=== PATIENT | male | born 1990 | race African-American/Black ===

== ENCOUNTER 2016-09-19 14:54 | Day surgery (SDC) | payer OTHER ==
[~2016-09-19] VITALS: Ht 157.5 cm; Wt 51.5 kg
[2016-09-19] VITALS (8 sets, daily range): BP systolic 124–142; BP diastolic 74–107; PULSE 107–138; RESP 16–18; TEMP 97.7–99.5; O2SAT 99–100
[~2016-09-19 14:54] MED LIST: BACI500O9 TOP; DICLOFENAC SODIUM 37.5 MG/ML VIAL IV PUSH ONE; PROPOFOL 200 MG/20 ML AMP IV ONE; SULF-154 PO; Z.0.NO CURRENT MEDS
[2016-09-19] MEDS ORDERED: SODIUM CHLOR 0.9% 1000 ML INJ 1,000 ML IV SCH (15:53)
[2016-09-19] MEDS ORDERED: SODIUM CHLORIDE 0.9% FLUSH 5 ML FLUSH IVF PRN (16:00)
[2016-09-19] MEDS ORDERED: FAMOTIDINE 20 MG/2 ML VIAL IV PUSH ONE (16:00)
[2016-09-19] MEDS ORDERED: ONDANSETRON HCL 4 MG/2 ML VIAL IVP ONE (16:00)
[2016-09-19 16:26] LABS: AUTOMATED NEUTROPHIL # 7.3 TH/MM3 (1.8-7.7); BASOPHIL # 0.2 TH/MM3 (0-0.2); BASOPHIL % 2.4 % (0.0-2.0); EOSINOPHIL % 0.3 % (0.0-4.0); HEMATOCRIT 48.2 % (39.0-51.0); HEMO FLAGS DIFF FINAL; LYMPH % 14.1 % (9.0-44.0); LYMPHOCYTE # 1.3 TH/MM3 (1.0-4.8); MEAN CELL VOLUME 86.6 FL (80.0-100.0); MEAN CORPUSCULAR HEMOGLOBIN 27.3 PG (27.0-34.0); MEAN CORPUSCULAR HGB CONC 31.5 % (32.0-36.0); MONO % 7.4 % (0.0-8.0); NEUT % 75.8 % (16.0-70.0); PLATELET COUNT 248 TH/MM3 (150-450); RED BLOOD COUNT 5.56 MIL/MM3 (4.50-5.90); RED CELL DISTRIBUTION WIDTH 12.3 % (11.6-17.2); WHITE BLOOD COUNT 9.5 TH/MM3 (4.0-11.0)
--- NOTE | 2016-09-19 16:32 | PD ---
HPI Chief Complaint: GI Complaint Time Seen by Provider: 15:47 Travel History International Travel<30 days: No Contact w/Intl Traveler<30days: No Traveled to known affect area: No History of Present Illness HPI Patient is a 26-year-old male, with history of cerebral palsy, who comes in complaining of nausea and vomiting for 2 days. Per his family, he has not been able to keep anything down for the past 2 days. The last time he vomited was last night. He has been drinking fluids today and not vomiting. He has not tried to eat anything today. He says he has had some pain to his abdomen in the epigastric area. He complains of feeling very weak. He says that his mom has appeared dark, but he has not seen any jazzmine blood. He also reports no bowel movement in 2 days. He has not had any fever or chills. He has not had any cough or cold symptoms. PFSH Past Medical History Neurologic: Yes (CEREBRAL PALSY) Tetanus Vaccination: > 5 Years Influenza Vaccination: No Past Surgical History Neurologic Surgery: Yes (SPINAL FUSION) Social History Alcohol Use: No Tobacco Use: No Substance Use: No Allergies-Medications (Allergen,Severity, Reaction): Coded Allergies: No Known Allergies (Verified , 09/19/16) Reported Meds & Prescriptions Reported Meds & Active Scripts Active No Active Prescriptions or Reported Medications Review of Systems Except as stated in HPI: all other systems reviewed are Neg General / Constitutional: No: Fever, Chills HENT: No: Headaches, Lightheadedness Cardiovascular: No: Chest Pain or Discomfort Respiratory: No: Shortness of Breath Gastrointestinal: Positive: Nausea, Vomiting, Abdominal Pain, Constipation Genitourinary: No: Dysuria Skin: No Rash, No Change in Pigmentation Neurologic: Positive: Weakness Physical Exam Narrative GENERAL: Awake and alert, in no acute distress. SKIN: Warm and dry. HEAD: Atraumatic. Normocephalic. EYES: Pupils equal and round. No scleral icterus. Extraocular movements intact. ENT: Dry mucous membranes. NECK: Trachea midline. No JVD. CARDIOVASCULAR: Tachycardia. RESPIRATORY: No accessory muscle use. Clear to auscultation. Breath sounds equal bilaterally. GASTROINTESTINAL: Abdomen soft, non-tender, nondistended. Patient winces as if in pain, but denies tenderness on palpation. MUSCULOSKELETAL: Extremities contracted. No edema. NEUROLOGICAL: Awake and alert. No obvious cranial nerve deficits. Normal speech. PSYCHIATRIC: Appropriate mood and affect; insight and judgment normal. Data Data Last Documented VS Vital Signs Date Time Temp Pulse Resp B/P Pulse Ox O2 Delivery O2 Flow Rate FiO2 09/19/16 17:54 124 17 124/74 99 Room Air 09/19/16 17:08 99.5 Orders Basic Metabolic Panel (Bmp) (09/19/16 15:53) Complete Blood Count With Diff (09/19/16 15:53) Lipase (09/19/16 15:53) Lactic Acid (09/19/16 15:53) Prothrombin Time / Inr (Pt) (09/19/16 15:53) Act Partial Throm Time (Ptt) (09/19/16 15:53) Urinalysis - C+S If Indicated (09/19/16 15:53) Ua Includes Microscopic (09/19/16 15:53) Ct Abd/Pel W Iv Contrast(Rout) (09/19/16 15:53) Iv Access Insert/Monitor (09/19/16 15:53) Ecg Monitoring (09/19/16 15:53) Oximetry (09/19/16 15:53) Ondansetron Inj (Zofran Inj) (09/19/16 16:00) Sodium Chlor 0.9% 1000 Ml Inj (Ns 1000 M (09/19/16 15:53) Sodium Chloride 0.9% Flush (Ns Flush) (09/19/16 16:00) Famotidine Inj (Pepcid Inj) (09/19/16 16:00) Hepatic Functional Panel (09/19/16 15:53) Sodium Chlor 0.9% 1000 Ml Inj (Ns 1000 M (09/19/16 17:15) Acetaminophen (Tylenol) (09/19/16 17:15) Ondansetron Inj (Zofran Inj) (09/19/16 18:00) Ketorolac Inj (Toradol Inj) (09/19/16 18:00) Iohexol 350 Inj (Omnipaque 350 Inj) (09/19/16 18:18) Admit Order (Ed Use Only) (09/19/16 ) Labs Laboratory Tests Test 09/19/16 09/19/16 16:15 16:45 White Blood Count 9.5 TH/MM3 Red Blood Count 5.56 MIL/MM3 Hemoglobin 15.2 GM/DL Hematocrit 48.2 % Mean Corpuscular Volume 86.6 FL Mean Corpuscular Hemoglobin 27.3 PG Mean Corpuscular Hemoglobin 31.5 % Concent Red Cell Distribution Width 12.3 % Platelet Count 248 TH/MM3 Mean Platelet Volume 11.3 FL Neutrophils (%) (Auto) 75.8 % Lymphocytes (%) (Auto) 14.1 % Monocytes (%) (Auto) 7.4 % Eosinophils (%) (Auto) 0.3 % Basophils (%) (Auto) 2.4 % Neutrophils # (Auto) 7.3 TH/MM3 Lymphocytes # (Auto) 1.3 TH/MM3 Monocytes # (Auto) 0.7 TH/MM3 Eosinophils # (Auto) 0.0 TH/MM3 Basophils # (Auto) 0.2 TH/MM3 CBC Comment DIFF FINAL Differential Comment Prothrombin Time 12.1 SEC Prothromb Time International 1.1 RATIO Ratio Activated Partial 30.9 SEC Thromboplast Time Sodium Level 134 MEQ/L Potassium Level 4.6 MEQ/L Chloride Level 100 MEQ/L Carbon Dioxide Level 18.2 MEQ/L Anion Gap 16 MEQ/L Blood Urea Nitrogen 15 MG/DL Creatinine 1.20 MG/DL Estimat Glomerular Filtration 89 ML/MIN Rate Random Glucose 89 MG/DL Lactic Acid Level 1.7 mmol/L Calcium Level 9.3 MG/DL Total Bilirubin 0.9 MG/DL Direct Bilirubin 0.2 MG/DL Indirect Bilirubin 0.7 MG/DL Aspartate Amino Transf 6 U/L (AST/SGOT) Alanine Aminotransferase 14 U/L (ALT/SGPT) Alkaline Phosphatase 90 U/L Total Protein 9.8 GM/DL Albumin 4.2 GM/DL Lipase 52 U/L Urine Collection Type CLEAN CATCH Urine Color YELLOW Urine Turbidity CLEAR Urine pH 6.0 Urine Specific [place] 1.024 Urine Protein 100 mg/dL Urine Glucose (UA) NEG mg/dL Urine Ketones 80 OR GREATER mg/dL Urine Occult Blood MOD Urine Nitrite NEG Urine Bilirubin NEG Urine Leukocyte Esterase NEG Urine RBC 0-3 /hpf Urine WBC 0-2 /hpf Urine Bacteria RARE /hpf Microscopic Urinalysis Comment CULT NOT INDICATED Urine Collection Time 1655 MDM Medical Decision Making Medical Screen Exam Complete: Yes Emergency Medical Condition: Yes Medical Record Reviewed: Yes Differential Diagnosis Gastroenteritis versus obstruction versus UTI versus colitis Narrative Course Patient is a 26-year-old male who comes in complaining of vomiting. Exam shows patient is tachycardic. IV established, labs sent. Labs show creatinine of 1.2. Patient given 2 L of fluids. Given Toradol. Given Zofran 2. CT of the abdomen and pelvis performed shows a 10 x 8 mm obstructing stone on the left. I spoke with Dr. Parra of urology. He would like patient transferred to the main hospital to place a ureteral stent. Patient admitted to same day surgery for the procedure. Patient reports being comfortable and having no complaints at this time. Diagnosis Primary Impression: Ureteral stone with hydronephrosis Admitting Information Admitting Physician Requests: Admit Scripts No Active Prescriptions or Reported Meds Carlotta Jackson MD Sep 19, 2016 16:32
[2016-09-19 16:35] LABS: POTASSIUM 4.6 MEQ/L (3.5-5.1)
[2016-09-19 16:39] LABS: BICARBONATE 18.2 MEQ/L (21.0-32.0)
[2016-09-19 16:41] LABS: APTT (PATIENT) 30.9 SEC (24.3-30.1); INTERNATIONAL NORMALIZED RATIO 1.1 RATIO; PROTHROMBIN TIME - PATIENT 12.1 SEC (9.8-11.6)
[2016-09-19 16:44] LABS: INDIRECT BILIRUBIN 0.7 MG/DL (0.0-0.8); TOTAL BILIRUBIN ADULT 0.9 MG/DL (0.2-1.0)
[2016-09-19] MEDS ORDERED: ACETAMINOPHEN 325 MG TAB PO ONE (17:15)
[2016-09-19] MEDS ORDERED: SODIUM CHLOR 0.9% 1000 ML INJ 1,000 ML IV ONE (17:15)
[2016-09-19 17:28] LABS: GLUCOSE,URINE NEG (NEG); NITRITE,URINE NEG (NEG)
[2016-09-19 17:30] LABS: BLOOD, URINE MOD (NEG); KETONE, URINE 80 OR GREATER mg/dL (NEG)
[2016-09-19 17:55] LABS: BACTERIA, URINE RARE /hpf; METHOD OF COLLECTION CLEAN CATCH; RBC, URINE 0-3 /hpf (0-3); URINE COLOR YELLOW (YELLW/STRAW); WBC, URINE 0-2 /hpf (0-5)
[2016-09-19 17:56] LABS: COMMENT (UR) CULT NOT INDICATED; CULTURE IF INDICATED CULT NOT INDICATED
[2016-09-19] MEDS ORDERED: ONDANSETRON HCL 4 MG/2 ML VIAL IV PUSH ONE (18:00)
[2016-09-19] MEDS ORDERED: KETOROLAC TROMETHAMINE 30 MG/ML (IVP) VIAL IV PUSH ONE (18:00)
--- NOTE | 2016-09-19 18:05 | RADHPO ---
EXAM DATE/TIME: 09/19/2016 17:16 [facility] COMPARISON: No previous studies available for comparison. INDICATIONS : Nausea and vomiting for two days. IV CONTRAST: 87 cc Omnipaque 350 (iohexol) IV ORAL CONTRAST: No oral contrast ingested. RADIATION DOSE: 11.45 CTDIvol (mGy) MEDICAL HISTORY : Cerebral palsy. SURGICAL HISTORY : Fusion, lumbar. ENCOUNTER: Initial ACUITY: 2 days PAIN SCALE: 5/10 LOCATION: Abdomen. TECHNIQUE: Volumetric scanning of the abdomen and pelvis was performed. Using automated exposure control and ad justment of the mA and/or kV according to patient size, radiation dose was kept as low as reasonably achievable to obtain optimal diagnostic quality images. FINDINGS: LOWER LUNGS: The visualized lower lungs are clear. LIVER: Homogeneous density without lesion. There is no dilation of the biliary tree. No calcified gallston es. SPLEEN: Normal size without lesion. PANCREAS: Within normal limits. KIDNEYS: Normal in size and shape. There is a 10 by 8mm calculus in the proximal left ureter with moderate lef t hydronephrosis. The left kidney is mildly prominent and there is a delayed nephrogram. ADRENAL GLANDS: Within normal limits. VASCULAR: There is no aortic aneurysm. BOWEL/MESENTERY: The distal esophagus is abnormal with dilatation and fluid. The stomach, small bowel, and colon demon strate no acute abnormality. There is no free intraperitoneal air or fluid. ABDOMINAL WALL: Within normal limits. RETROPERITONEUM: There is no lymphadenopathy. BLADDER: No wall thickening or mass. REPRODUCTIVE: Within normal limits. INGUINAL: There is no lymphadenopathy or hernia. MUSCULOSKELETAL: Extensive postsurgical changes are noted throughout the spine with multilevel fusion and severe scoli osis. There is extensive streak artifact limiting visualization. CONCLUSION: 1. 10 by 8mm proximal left ureteral calculus with moderate hydronephrosis. There is apparent delayed nephrogram. 2. Abnormal distal esophagus which is dilated and contains fluid. 3. Severe scoliosis and postsurgical changes. Mark Ceja MD on September 19, 2016 at 17:59 Board Certified Radiologist. This report was verified electronically.
[2016-09-19] MEDS ORDERED: IOHEXOL 350 MG/ML 10 ML VIAL (for RAD DIAG) IV ONE (18:18)
[2016-09-19] MEDS ORDERED: LEVOFLOXACIN 500 MG PREMIX INJ 100 ML IV ONE (19:15)
[2016-09-19] MEDS ORDERED: ceFAZolin INJ 1,000 MG VIAL ONE (20:05)
[2016-09-19] MEDS ORDERED: ACETAMINOPHEN 1000 MG/100 ML VIAL IV ONE (21:11)
[2016-09-19] MEDS ORDERED: SUGAMMADEX SODIUM 200 MG/2 ML VIAL IV PUSH ONE ×2 (21:20)
--- NOTE | 2016-09-19 21:38 | PD.CONS ---
HPI Service Urology Consult Requested By Reason for Consult Left nephrolithiasis Primary Care Physician Gilberto Bustillo MD Diagnosis: History of Present Illness 26yo male with CP presents with evidence of a large left proximal ureteral stone. Patient has been vomiting throughout the day with vague abdominal pain. CT scan identified a large left proximal ureteral stone. No fevers. Normal WBC. No history of kidney stones. Review of Systems ROS Limitations: Clinical Condition Constitutional: DENIES: Fever Endocrine: DENIES: Polyuria Eyes: DENIES: Blurred vision Ears, nose, mouth, throat: DENIES: Hearing loss Respiratory: DENIES: Cough Cardiovascular: DENIES: Chest pain Gastrointestinal: COMPLAINS OF: Abdominal pain, Nausea, Vomiting Genitourinary: COMPLAINS OF: Hematuria Musculoskeletal: DENIES: Back pain Integumentary: DENIES: Rash Hematologic/lymphatic: DENIES: Bruising Neurologic: DENIES: Headache Psychiatric: DENIES: Anxiety Except as stated in HPI: all other systems reviewed are Neg Past Family Social History Past Medical History Cerebral Palsy Nephrolithiasis Past Surgical History Spinal fusion Reported Medications Reported Meds & Active Scripts Active No Active Prescriptions or Reported Medications Allergies: Coded Allergies: No Known Allergies (Verified , 09/19/16) Active Ordered Medications Current Medications Medications (Trade) Dose Ordered Sig/Justin Route Start Time Stop Time Status Last Admin (NS Flush) 2 ml UNSCH PRN IVF 09/19/16 16:00 Family History Reviewed and noncontributory to present illness Social History No smoking history No ETOH Physical Exam Vital Signs Vital Signs Date Time Temp Pulse Resp B/P Pulse Ox O2 Delivery O2 Flow Rate FiO2 09/19/16 19:16 99.0 124 18 134/81 99 Room Air 09/19/16 17:54 124 17 124/74 99 Room Air 09/19/16 17:08 99.5 138 09/19/16 16:22 100 Room Air 09/19/16 14:56 99.2 120 18 142/107 100 Physical Exam GENERAL: This is a well-nourished male. in no apparent distress. SKIN: No rashes, ecchymoses or lesions. Cool and dry. HEAD: Atraumatic. Normocephalic. EYES: Extraocular motions intact. No scleral icterus. No injection or drainage. ENT: Nose without bleeding, purulent drainage. Airway patent. NECK: Trachea midline. CARDIOVASCULAR: Normal pulses. RESPIRATORY: Respirations nonlabored, Equal chest rise GASTROINTESTINAL: Abdomen soft, non-tender, nondistended. MUSCULOSKELETAL: Extremities without clubbing, cyanosis. Contracted upper and lower extremities, minimal range of motion NEUROLOGICAL: Awake and alert. Normal speech. Laboratory Laboratory Tests Test 09/19/16 09/19/16 16:15 16:45 White Blood Count 9.5 Red Blood Count 5.56 Hemoglobin 15.2 Hematocrit 48.2 Mean Corpuscular Volume 86.6 Mean Corpuscular Hemoglobin 27.3 Mean Corpuscular Hemoglobin 31.5 Concent Red Cell Distribution Width 12.3 Platelet Count 248 Mean Platelet Volume 11.3 Neutrophils (%) (Auto) 75.8 Lymphocytes (%) (Auto) 14.1 Monocytes (%) (Auto) 7.4 Eosinophils (%) (Auto) 0.3 Basophils (%) (Auto) 2.4 Neutrophils # (Auto) 7.3 Lymphocytes # (Auto) 1.3 Monocytes # (Auto) 0.7 Eosinophils # (Auto) 0.0 Basophils # (Auto) 0.2 CBC Comment DIFF FINAL Differential Comment Prothrombin Time 12.1 Prothromb Time International 1.1 Ratio Activated Partial 30.9 Thromboplast Time Sodium Level 134 Potassium Level 4.6 Chloride Level 100 Carbon Dioxide Level 18.2 Anion Gap 16 Blood Urea Nitrogen 15 Creatinine 1.20 Estimat Glomerular Filtration 89 Rate Random Glucose 89 Lactic Acid Level 1.7 Calcium Level 9.3 Total Bilirubin 0.9 Direct Bilirubin 0.2 Indirect Bilirubin 0.7 Aspartate Amino Transf 6 (AST/SGOT) Alanine Aminotransferase 14 (ALT/SGPT) Alkaline Phosphatase 90 Total Protein 9.8 Albumin 4.2 Lipase 52 Urine Collection Type CLEAN CATCH Urine Color YELLOW Urine Turbidity CLEAR Urine pH 6.0 Urine Specific Levels 1.024 Urine Protein 100 Urine Glucose (UA) NEG Urine Ketones 80 OR GREATER Urine Occult Blood MOD Urine Nitrite NEG Urine Bilirubin NEG Urine Leukocyte Esterase NEG Urine RBC 0-3 Urine WBC 0-2 Urine Bacteria RARE Microscopic Urinalysis Comment CULT NOT INDICATED Urine Collection Time 1655 Result Diagram: 09/19/16 1615 09/19/16 1615 Imaging Last 72 hours Impressions Abdomen/Pelvis CT 09/19/16 1553 Signed Impressions: Service Date/Time: Monday, September 19, 2016 17:16 - CONCLUSION: 1. 10 by 8mm proximal left ureteral calculus with moderate hydronephrosis. There is apparent delayed nephrogram. 2. Abnormal distal esophagus which is dilated and contains fluid. 3. Severe scoliosis and postsurgical changes. Mark Ceja MD Assessment and Plan Problem List: (1) Ureteral stone with hydronephrosis ICD Code: N13.2 Status: Acute Assessment and Plan 26yo male with CP and left proximal ureteral stone -To the OR for left ureteral stent placement Douglas Parra MD Sep 19, 2016 21:38
[2016-09-19] MEDS ORDERED: DO NOT ADM ANY ANTICOAGULANT DRUGS XX PRN (22:30)
[2016-09-19] MEDS ORDERED: PERC5TAB12 PO (22:58)
[2016-09-19] MEDS ORDERED: OXYB5TAB10 PO (22:58)
[2016-09-19] MEDS ORDERED: CIPR500T2 PO (22:58)
[2016-09-19] MEDS ORDERED: ONDANSETRON HCL 4 MG/2 ML VIAL IV PUSH PRN (23:00)
[2016-09-19] MEDS ORDERED: oxyCODONE/ACETAMINOPHEN 5 MG/325 MG TAB PO PRN ×2 (23:00)
--- NOTE | 2016-09-20 21:01 | MP ---
cc: VALERIANO CHRISTINA MD DATE OF SURGERY 09/19/16 PREOPERATIVE DIAGNOSIS Left proximal ureteral stone POSTOPERATIVE DIAGNOSIS Left proximal ureteral stone SURGEON Rodrick Christina MD PROCEDURE 1. Cystoscopy 2. Left ureteral stent placement PERTINENT FINDINGS 1. Large left proximal ureteral stone noted. 2. Successful placement of 6 x 20 double J ureteral stent on the left. HISTORY OF PRESENT ILLNESS Richar Neely is a 26 year old male with cerebral palsy found to have a large left 1 cm obstructing proximal ureteral stone. The patient has been having nausea and vomiting for the last day and, therefore, presents for management with left ureteral stent placement. PROCEDURE IN DETAIL After proper informed consent was obtained, the patient was brought to the operating room and laid supine on the operating room table. The patient then placed in supine position after general anesthesia. The patient was then prepped and draped in standard surgical fashion. After proper timeout was completed, the rigid cystoscope inserted to the urethra into the bladder. The urethral mucosa within normal limits and no lesions identified prior to entering the bladder or within. The right ureter orfice was immediately identified. The left ureteral orifice was noted to be quite distal and near the bladder neck. This was then cannulated using the guide wire was advanced up into the left kidney. Following this, a 6 x 20 double J ureteral stent was successfully placed over the wire into the left collecting system with a good curl in the renal pelvis as well as in the bladder. The patient's bladder was emptied and the scope was removed. Of note, after placement of the left stent there was some murky fluid expressed from the left ureteral orifice and stent. The patient tolerated the procedure well with no complications. He was awaken from anesthesia and taken to PACU is good stable condition. DISPOSITION The patient will be discharged home with follow up in clinic in 1-2 weeks for definitive management of his left stone burden. Valeriano Christina M.D. SREEKANTH/ /10:09 PM /8:51 PM [facility]ITALCayden
== END 2016-09-19 23:40 | disposition home or self-care (01) ==
LOC: PHED 14:54 → HSDC 19:13
PROVIDERS: ATTEND Urology
DX: N20.1 Calculus of ureter (principal); G80.9 Cerebral palsy, unspecified
CPT/HCPCS: 00910; 52332; 74177; 80048; 80076; 81001; 83605; 83690; 85025; 85610; 85730; 96361; 96374; 96375; 96376; 99284; C2617; J0131; J0690; J1130; J1885; J1956; J2405; J3010; J7030; Q9967

== ENCOUNTER 2016-10-07 14:57 | Emergency (ER) | payer OTHER ==
[~2016-10-07 14:57] MED LIST changes: -BACI500O9 TOP; +CIPR500T2 PO; -DICLOFENAC SODIUM 37.5 MG/ML VIAL IV PUSH ONE; +OXYB5TAB10 PO; +PERC5TAB12 PO; -PROPOFOL 200 MG/20 ML AMP IV ONE; -SULF-154 PO; -Z.0.NO CURRENT MEDS
[2016-10-07 14:59] VITALS: BP 153/95; PULSE 108; RESP 15; TEMP 98.4; O2SAT 100
--- NOTE | 2016-10-07 17:29 | PD ---
HPI Chief Complaint: Complaint Time Seen by Provider: 17:08 Travel History International Travel<30 days: No Contact w/Intl Traveler<30days: No Traveled to known affect area: No History of Present Illness HPI 26 y/o male presents with his mother with wanting to get his stent out. She states he had it placed here 2 weeks ago and she is concerned because he cannot get in with the urologist for a month or 2. She states he is not having any pain or significant symptoms but she is concerned about his follow-up. She states she doesn't know who placed the stent and who she should follow with other than here. PFSH Past Medical History Neurologic: Yes (CEREBRAL PALSY) Past Surgical History Genitourinary Surgery: Yes (STENT PLACEMENT) Neurologic Surgery: Yes (SPINAL FUSION) Social History Alcohol Use: No Tobacco Use: No Substance Use: No Allergies-Medications (Allergen,Severity, Reaction): Coded Allergies: No Known Allergies (Verified , 09/19/16) Reported Meds & Prescriptions Reported Meds & Active Scripts Active Reported Ditropan (Oxybutynin Chloride) 5 Mg Tab 5 Mg PO Q8HR Percocet (Oxycodone-Acetaminophen) 5-325 mg Tab 1-2 Tab PO Q6H PRN Ciprofloxacin (Ciprofloxacin HCl) 500 Mg Tab 500 Mg PO BID 5 Days Review of Systems Except as stated in HPI: all other systems reviewed are Neg Physical Exam Narrative GENERAL: NAD SKIN: Warm and dry. NECK: Supple, trachea midline. CARDIOVASCULAR: Regular rate and rhythm RESPIRATORY: no increased effort. No accessory muscle use. GASTROINTESTINAL: Abdomen soft, non-tender, nondistended. Data Data Last Documented VS Vital Signs Date Time Temp Pulse Resp B/P Pulse Ox O2 Delivery O2 Flow Rate FiO2 10/07/16 17:06 18 10/07/16 14:59 98.4 108 153/95 100 Orders MDM Medical Decision Making Medical Screen Exam Complete: Yes Emergency Medical Condition: Yes Medical Record Reviewed: Yes ([facility] confirmed, Dr. Parra placed stent for 10 x 8 proximal stone) Differential Diagnosis stone, stent, displacement Narrative Course Lengthy discussion with mother about how I cannot remove stent. I advised her that we will check x-ray to make sure it is in place and touch base with case management about how to follow up after discussion with specialist While I was with another patient they elected to leave before obtaining KUB or before I could talk with urologist Diagnosis Primary Impression: History of ureter stent Disposition: 07 AGAINST MEDICAL ADVICE Condition: Stable Ute Mcknight MD Oct 07, 2016 17:28 Ute Mcknight MD Oct 07, 2016 17:28
== END 2016-10-07 18:10 | disposition left against medical advice (07) ==
LOC: NEPC 14:57
DX: Z53.21 Procedure and treatment not carried out due to patient leaving prior to being seen by health care provider (principal); Z46.6 Encounter for fitting and adjustment of urinary device
CPT/HCPCS: 99283